=== PATIENT | male | born 1965 | race Caucasian/White ===

== ENCOUNTER 2025-01-21 17:11 | Inpatient (IN) | payer OTHER ==
[~2025-01-21] VITALS: Ht 180.3 cm; Wt 103.2 kg
[2025-01-21] MEDS ORDERED: ISOVUE-370 76% 100 ML VIAL As Ordered ONE (17:29)
[2025-01-21 17:40] LABS: BASO # 0.1 10^3/uL (0.0-0.2); BASO % 1.7 % (0.0-1.0); EOS # 0.2 10^3/uL (0.0-0.5); EOS % 4.8 % (0.0-3.0); LYMPH # 1.9 10^3/uL (1.5-5.0); LYMPH % 38.8 % (24.0-44.0); MONO # 0.6 10^3/uL (0.0-0.8); MONO % 12.4 % (2.0-8.0); NEUTROPHILS # 2.0 10^3/uL (1.5-8.5); NEUTROPHILS % 42.1 % (36.0-66.0)
[2025-01-21 17:55] LABS: INR 1.42
[2025-01-21 18:02] LABS: PLATELET COUNT, AUTOMATED 79 10^3/uL (150-450)
[2025-01-21 18:27] LABS: ALT/SGPT 23 U/L (7.0-40); AST/SGOT 26 U/L (<34); CALCIUM LEVEL 9.5 MG/DL (8.3-10.6); CARBON DIOXIDE LEVEL 24 MMOL/L (20-31); CHLORIDE LEVEL 101 MMOL/L (98-107); CK-MB VALUE MASS 3.0 NG/ML (<3.6); CPK CREATINE PHOSPHOKINASE 123 U/L (46-171); CREATININE FOR GFR 0.80 MG/DL (0.70-1.30); GLOMERULAR FILTRATION RATE > 90.0 (>49); MB/CK RELATIVE INDEX 2.43 (< OR =4); POTASSIUM SERUM 4.0 MMOL/L (3.5-5.1); SODIUM LEVEL 138 MMOL/L (136-145)
[2025-01-21] MEDS: NS 500 ML IV ONE ×2 (18:57→19:12)
[2025-01-21] MEDS ORDERED: SITA50TAB PO (19:01)
[2025-01-21] MEDS ORDERED: ROSU40TA81 PO (19:01)
[2025-01-21] MEDS ORDERED: TAMS-18 PO (19:01)
[2025-01-21] MEDS ORDERED: METF10004 PO (19:01)
[2025-01-21] MEDS ORDERED: FINA5TAB2 PO (19:01)
[2025-01-21] MEDS ORDERED: JARD1TAB3 PO (19:01)
[2025-01-21] MEDS ORDERED: CARV6.25 PO (19:02)
[2025-01-21] MEDS ORDERED: PANT40TA29 PO (19:02)
[2025-01-21] MEDS ORDERED: LISI20TA33 PO (19:02)
[2025-01-21 19:09] LABS: SALICYLATE LEVEL < 3.0 MG/DL (<30)
[2025-01-21 19:11] LABS: ETHYL ALCOHOL (ETHANOL) < 0.003 % (0.000-0.010)
[2025-01-21 19:50] LABS: AMPHETAMINES LEVEL URINE NEGATIVE (NEGATIVE); BARBITURATES URINE NEGATIVE (NEGATIVE); BENZODIAZEPINES URINE NEGATIVE (NEGATIVE); COCAINE METABOLITE URINE NEGATIVE (NEGATIVE); METHADONE URINE NEGATIVE (NEGATIVE)
[2025-01-21 19:51] LABS: OPIATES URINE NEGATIVE (NEGATIVE); PHENCYCLIDINE URINE NEGATIVE (NEGATIVE)
[2025-01-21 19:55] LABS: CANNABINOIDS URINE POSITIVE (NEGATIVE)
[2025-01-21] MEDS: HumuLIN R (REGULAR) INSULIN (NovoLIN R) **100 U/ML** PER UNIT IV STA (20:08)
[2025-01-21] MEDS: ASPIRIN 325 MG TAB PO ONE (20:12)
[2025-01-21] MEDS: CLOPIDOGREL 75 MG TAB PO ONE (20:12)
[2025-01-21] MEDS ORDERED: DEXTROSE 50% 50 ML SYRINGE IV PRN (21:00)
[2025-01-21] MEDS ORDERED: GLUCOSE 4 GM CHEW PO PRN (21:00)
[2025-01-21] MEDS ORDERED: GLUCAGON INJ 1 MG VIAL SC PRN (21:00)
[2025-01-21] MEDS ORDERED: ATORVASTATIN 20 MG TAB PO SCH (21:00)
[2025-01-21] MEDS: INSULIN LISPRO (NovoLOG) PER UNIT SC SCH (21:20)
[2025-01-21] MEDS ORDERED: LISI40TA10 PO (23:08)
[2025-01-21] MEDS ORDERED: THIA100TA PO (23:08)
[2025-01-21] MEDS ORDERED: SILD100T PO (23:08)
[2025-01-21] MEDS ORDERED: GABA-1171 PO (23:08)
[2025-01-21] MEDS ORDERED: SITA100T6 PO (23:08)
[2025-01-21] MEDS ORDERED: HOME MED LIST COMPLETE! XX SCH (23:10)
[2025-01-21 23:16] VITALS: BP 179/90; TEMP 98; O2SAT 95
[2025-01-21] MEDS: ROSUVASTATIN 10 MG TAB PO SCH (23:53)
[2025-01-22] VITALS (36 sets, daily range): BP systolic 115–175; BP diastolic 66–85; TEMP 97–98; O2SAT 96–100
[2025-01-22 06:11] LABS: BASO # 0.1 10^3/uL (0.0-0.2); BASO % 1.4 % (0.0-1.0); EOS # 0.4 10^3/uL (0.0-0.5); EOS % 7.1 % (0.0-3.0); LYMPH # 2.0 10^3/uL (1.5-5.0); LYMPH % 40.6 % (24.0-44.0); MONO # 0.5 10^3/uL (0.0-0.8); MONO % 9.8 % (2.0-8.0); NEUTROPHILS # 2.0 10^3/uL (1.5-8.5); NEUTROPHILS % 40.9 % (36.0-66.0)
[2025-01-22 06:14] LABS: PLATELET COUNT, AUTOMATED 91 10^3/uL (150-450)
[2025-01-22 06:43] LABS: CALCIUM LEVEL 9.2 MG/DL (8.3-10.6); CARBON DIOXIDE LEVEL 25 MMOL/L (20-31); CHLORIDE LEVEL 106 MMOL/L (98-107); CREATININE FOR GFR 0.67 MG/DL (0.70-1.30); GLOMERULAR FILTRATION RATE > 90.0 (>49); MAGNESIUM LEVEL 1.6 MG/DL (1.8-2.4); POTASSIUM SERUM 3.6 MMOL/L (3.5-5.1); SODIUM LEVEL 144 MMOL/L (136-145)
[2025-01-22 08:22] LABS: CHOLESTEROL LEVEL 164 MG/DL (<200); CHOLESTEROL RISK RATIO 3.28 (<5); LDL CHOLESTEROL 73.5 MG/DL (<100); NON-HDL-C 114.1 MG/DL; TRIGLYCERIDES LEVEL 203 MG/DL (<150)
[2025-01-22] MEDS ORDERED: ENOXAPARIN 40 MG/0.4 ML SYRINGE (J1650 PER 10MG) SC SCH (09:00)
[2025-01-22] MEDS: CLOPIDOGREL 75 MG TAB PO SCH (09:53)
[2025-01-22] MEDS: ASPIRIN 81 MG ENTERIC TABLET PO SCH (09:53)
[2025-01-22] MEDS: INSULIN LISPRO (NovoLOG) PER UNIT SC SCH ×2 (09:54→18:35)
[2025-01-22] MEDS: MAG SULF 1GM/100ML (MAG RUN) 1 GM in IV 1 EA IV SCH (09:54)
[2025-01-22] MEDS: INSULIN GLARGINE-YFGN 1 UNITS/0.01 ML SC SCH (13:36)
[2025-01-23] VITALS (33 sets, daily range): BP systolic 102–144; BP diastolic 58–88; TEMP 97.3–98.6; O2SAT 95–99
[2025-01-23 07:30] LABS: BASO # 0.1 10^3/uL (0.0-0.2); BASO % 1.4 % (0.0-1.0); EOS # 0.3 10^3/uL (0.0-0.5); EOS % 6.5 % (0.0-3.0); LYMPH # 1.9 10^3/uL (1.5-5.0); LYMPH % 38.0 % (24.0-44.0); MONO # 0.5 10^3/uL (0.0-0.8); MONO % 10.6 % (2.0-8.0); NEUTROPHILS # 2.1 10^3/uL (1.5-8.5); NEUTROPHILS % 43.5 % (36.0-66.0)
[2025-01-23 07:33] LABS: PLATELET COUNT, AUTOMATED 74 10^3/uL (150-450)
[2025-01-23 08:04] LABS: CALCIUM LEVEL 8.8 MG/DL (8.3-10.6); CARBON DIOXIDE LEVEL 24 MMOL/L (20-31); CHLORIDE LEVEL 110 MMOL/L (98-107); CREATININE FOR GFR 0.67 MG/DL (0.70-1.30); GLOMERULAR FILTRATION RATE > 90.0 (>49); MAGNESIUM LEVEL 1.6 MG/DL (1.8-2.4); POTASSIUM SERUM 3.5 MMOL/L (3.5-5.1); SODIUM LEVEL 145 MMOL/L (136-145)
[2025-01-23] MEDS: INSULIN GLARGINE-YFGN 1 UNITS/0.01 ML SC SCH (10:21)
[2025-01-23] MEDS: TAMSULOSIN 0.4 MG CAP PO SCH (18:54)
[2025-01-23] MEDS: FINASTERIDE 5 MG TAB PO SCH (18:54)
[2025-01-23] MEDS: MAG SULF 1GM/100ML (MAG RUN) 1 GM in IV 1 EA IV SCH (20:48)
[2025-01-23] MEDS: PANTOPRAZOLE 40MG TAB PO SCH (20:56)
[2025-01-23] MEDS: RAMELTEON 8 MG TAB PO SCH (20:57)
[2025-01-23] MEDS: MAGNESIUM OXIDE 400 MG TAB PO SCH (20:57)
[2025-01-24] VITALS (18 sets, daily range): BP systolic 117–144; BP diastolic 58–77; TEMP 97.3–97.8; O2SAT 95–98
[2025-01-24 05:54] LABS: PLATELET COUNT, AUTOMATED 72 10^3/uL (150-450)
[2025-01-24 06:24] LABS: ALT/SGPT 21 U/L (7.0-40); AST/SGOT 32 U/L (<34); CALCIUM LEVEL 9.3 MG/DL (8.3-10.6); CARBON DIOXIDE LEVEL 24 MMOL/L (20-31); CHLORIDE LEVEL 113 MMOL/L (98-107); CREATININE FOR GFR 0.70 MG/DL (0.70-1.30); GLOMERULAR FILTRATION RATE > 90.0 (>49); POTASSIUM SERUM 3.6 MMOL/L (3.5-5.1); SODIUM LEVEL 149 MMOL/L (136-145)
[2025-01-24] MEDS: INSULIN LISPRO (NovoLOG) PER UNIT SC SCH ×2 (09:37→17:54)
[2025-01-24] MEDS: INSULIN GLARGINE-YFGN 1 UNITS/0.01 ML SC SCH (09:38)
[2025-01-24] MEDS ORDERED: ONDANSETRON 4MG ORAL DISINTEGRATING TAB PO PRN (12:50)
[2025-01-24] MEDS: metFORMIN 500 MG TAB PO SCH (12:50)
[2025-01-24] MEDS: DAPAGLIFLOZIN PROPANEDIOL 10 MG TABLET PO SCH (13:43)
[2025-01-25] VITALS (7 sets, daily range): BP systolic 96–142; BP diastolic 56–75; TEMP 96.3–98; O2SAT 96–99
[2025-01-25 06:21] LABS: PLATELET COUNT, AUTOMATED 76 10^3/uL (150-450)
[2025-01-25 06:31] LABS: ALT/SGPT 22 U/L (7.0-40); AST/SGOT 32 U/L (<34); CALCIUM LEVEL 9.4 MG/DL (8.3-10.6); CARBON DIOXIDE LEVEL 22 MMOL/L (20-31); CHLORIDE LEVEL 114 MMOL/L (98-107); CREATININE FOR GFR 0.67 MG/DL (0.70-1.30); GLOMERULAR FILTRATION RATE > 90.0 (>49); POTASSIUM SERUM 3.6 MMOL/L (3.5-5.1); SODIUM LEVEL 150 MMOL/L (136-145)
[2025-01-25] MEDS: D5W 1,000 ML IV SCH (16:24)
[2025-01-25] MEDS: INSULIN LISPRO (NovoLOG) PER UNIT SC SCH ×2 (18:04→20:19)
[2025-01-25] MEDS: metFORMIN 500 MG TAB PO SCH (18:04)
[2025-01-25 21:42] LABS: CALCIUM LEVEL 9.2 MG/DL (8.3-10.6); CARBON DIOXIDE LEVEL 21 MMOL/L (20-31); CHLORIDE LEVEL 110 MMOL/L (98-107); CREATININE FOR GFR 0.81 MG/DL (0.70-1.30); GLOMERULAR FILTRATION RATE > 90.0 (>49); POTASSIUM SERUM 3.8 MMOL/L (3.5-5.1); SODIUM LEVEL 145 MMOL/L (136-145)
[2025-01-26] VITALS: BP 107/54; TEMP 97.7; O2SAT 96
[2025-01-26 04:22] VITALS: BP 141/64; TEMP 97.6; O2SAT 97
[2025-01-26 05:32] VITALS: BP 119/61; TEMP 98.2; O2SAT 97
[2025-01-26 09:06] LABS: PLATELET COUNT, AUTOMATED 74 10^3/uL (150-450)
[2025-01-26 09:11] LABS: ALT/SGPT 19 U/L (7.0-40); AST/SGOT 30 U/L (<34); CALCIUM LEVEL 9.1 MG/DL (8.3-10.6); CARBON DIOXIDE LEVEL 23 MMOL/L (20-31); CHLORIDE LEVEL 110 MMOL/L (98-107); CREATININE FOR GFR 0.71 MG/DL (0.70-1.30); GLOMERULAR FILTRATION RATE > 90.0 (>49); POTASSIUM SERUM 3.7 MMOL/L (3.5-5.1); SODIUM LEVEL 146 MMOL/L (136-145)
[2025-01-26 12:00] VITALS: BP 128/73; TEMP 97.7; O2SAT 97
[2025-01-26] MEDS ORDERED: LANTINJ4 SC (19:46)
[2025-01-26] MEDS ORDERED: CLOP75TA2 PO (19:46)
[2025-01-26] MEDS ORDERED: FARX1TAB3 PO (19:46)
[2025-01-26] MEDS ORDERED: ASPI81TAEC PO (19:46)
[2025-01-26] MEDS ORDERED: PEN-308 SC (19:46)
[2025-01-26] MEDS ORDERED: SITA50TAB PO (19:46)
[2025-01-26] MEDS ORDERED: MAGN400T33 PO (19:46)
[2025-01-26 20:22] VITALS: BP 137/66; TEMP 98.2; O2SAT 100
[2025-01-27 06:02] VITALS: BP 126/61; TEMP 98.2; O2SAT 97
[2025-01-27] MEDS: LanTUS (INSULIN GLARGINE INJ) 1 UNITS/0.01 ML SC SCH (08:06)
[2025-01-28 04:43] VITALS: BP 125/85; TEMP 97.9; O2SAT 98
[2025-01-29 03:19] VITALS: BP 115/53; TEMP 97.7; O2SAT 98
[2025-01-29 07:22] LABS: PLATELET COUNT, AUTOMATED 84 10^3/uL (150-450)
[2025-01-29 07:30] LABS: ALT/SGPT 18 U/L (7.0-40); AST/SGOT 29 U/L (<34); CALCIUM LEVEL 9.6 MG/DL (8.3-10.6); CARBON DIOXIDE LEVEL 22 MMOL/L (20-31); CHLORIDE LEVEL 110 MMOL/L (98-107); CREATININE FOR GFR 0.72 MG/DL (0.70-1.30); GLOMERULAR FILTRATION RATE > 90.0 (>49); POTASSIUM SERUM 3.5 MMOL/L (3.5-5.1); SODIUM LEVEL 146 MMOL/L (136-145)
[2025-01-29 09:26] VITALS: BP 122/60
== END 2025-01-29 13:06 | disposition home or self-care (01) | DRG 65 ==
LOC: M ED 17:11 → EDBD 17:11 → M ED INP 20:54 → M PCU 23:09 → M MSPAV 01-26 05:24
PROVIDERS: ADMIT Student in an Organized Health Care Education/Training Program; ATTEND Internal Medicine
PROC: B246ZZZ Ultrasonography of Right and Left Heart (ICD-10-PCS; principal; 2025-01-22)
DX: I63.89 Other cerebral infarction (principal); E87.0 Hyperosmolality and hypernatremia; R47.01 Aphasia; E78.5 Hyperlipidemia, unspecified; I10 Essential (primary) hypertension; G47.33 Obstructive sleep apnea (adult) (pediatric); E11.65 Type 2 diabetes mellitus with hyperglycemia; I65.23 Occlusion and stenosis of bilateral carotid arteries; N40.0 Benign prostatic hyperplasia without lower urinary tract symptoms; R41.0 Disorientation, unspecified; I65.01 Occlusion and stenosis of right vertebral artery; E83.42 Hypomagnesemia; I67.2 Cerebral atherosclerosis; G83.11 Monoplegia of lower limb affecting right dominant side; G83.12 Monoplegia of lower limb affecting left dominant side; Z79.82 Long term (current) use of aspirin; Z79.4 Long term (current) use of insulin; Z79.899 Other long term (current) drug therapy